=== PATIENT | female | born 1945 | race Caucasian/White ===

== ENCOUNTER → 2016-11-10 | Outpatient (CLI) | payer MEDICARE, BC ==
[~2016-11-10] MED LIST: CARVEDILOL3.125 MG PO; CRESTOR PO; HYDROCHLOROTHIA25 MG PO; LIPITOR40 MG PO; LOPRESSOR PO; VITAMIN B 12; VITAMIN D3400 UNI2 PO; VITAMIN D50000 UNIT PO
--- NOTE | ~2016-11-10 | CR157 ---
[facility] A Service of [facility] RADIOLOGY TEXT RESULTS PATIENT: BETHANY HODGES LOCATION: [facility] : 47 UNIT #: [id number] AGE: [address]: TOMY BRAXTON SEX: F ORDER DR: [id number] [facility] [address] [place], [place] [address] [id number] O MR#: [id number] Acc #: [id number] NAME: BETHANY HODGES : 1945 SEX: F STUDY DATE/TIME: 11/10/2016 11:29 UNIT: [facility] ROOM: STUDY DESCRIPTION: CR Humerus Min 2 View Rt Attending Physician: Pamela Hunter Referring Physician: Pamela Hunter Ordering Physician: Pamela Hunter Primary Care Physician: Beth Woods M.D. MEDICAL IMAGING REPORT This report is preliminary unless electronic signature is present EXAM Right humerus 11/02/2016 HISTORY 71-year-old female with right arm pain status post fall 3 weeks ago. COMPARISON Right shoulder and right elbow same date. FINDINGS 2 views of the right humerus demonstrate no acute fracture or dislocation. Soft tissues are unremarkable. IMPRESSION Unremarkable right humerus. Dictated by... Varinder Walker M.D. THIS IS AN ELECTRONICALLY VERIFIED REPORT Varinder Walker M.D. at 11/10/2016 5:02 PM ALEXANDREA/shadi TD: 11/10/2016 15:00 JOB #: [id number] MEDICAL IMAGING REPORT Page 1 of 1 COPY
--- NOTE | ~2016-11-10 | CR94 ---
[facility] A Service of [facility] & [facility] RADIOLOGY TEXT RESULTS PATIENT: BETHANY HODGES LOCATION: [facility] : 47 UNIT #: [id number] AGE: [address]: TOMY BRAXTON SEX: F ORDER DR: [id number] [facility] [address] [place], [place] [address] [id number] O MR#: [id number] Acc #: [id number] NAME: BETHANY HODGES : 1945 SEX: F STUDY DATE/TIME: 11/10/2016 11:28 UNIT: [facility] ROOM: STUDY DESCRIPTION: CR Elbow Min 3 Views Rt Attending Physician: Pamela Hunter Referring Physician: Pamela Hunter Ordering Physician: Pamela Hunter Primary Care Physician: Beth Woods M.D. MEDICAL IMAGING REPORT This report is preliminary unless electronic signature is present EXAM Right elbow 11/10/2016 HISTORY 71-year-old female with right elbow pain status post fall 3 weeks ago. COMPARISON Right humerus same date. FINDINGS 3 views of the right elbow demonstrate no acute fracture or dislocation. No joint effusion. Soft tissues are unremarkable. IMPRESSION Unremarkable right elbow. Dictated by... Varinder Walker M.D. THIS IS AN ELECTRONICALLY VERIFIED REPORT Varinder Walker M.D. at 11/10/2016 5:02 PM ALEXANDREA/torsten TD: 11/10/2016 14:41 JOB #: [id number] MEDICAL IMAGING REPORT Page 1 of 1 COPY
--- NOTE | ~2016-11-10 | CR230 ---
[facility] A Service of [facility] & [facility] RADIOLOGY TEXT RESULTS PATIENT: BETHANY HODGES LOCATION: [facility] : 47 UNIT #: [id number] AGE: [address]: TOMY BRAXTON SEX: F ORDER DR: [id number] [facility] [address] [place], [place] [address] [id number] O MR#: [id number] Acc #: [id number] NAME: BETHANY HODGES : 1945 SEX: F STUDY DATE/TIME: 11/10/2016 11:28 UNIT: [facility] ROOM: STUDY DESCRIPTION: CR Shoulder Min 2 View Rt Attending Physician: Pamela Hunter Referring Physician: Pamela Hunter Ordering Physician: Pamela Hunter Primary Care Physician: Beth Woods M.D. MEDICAL IMAGING REPORT This report is preliminary unless electronic signature is present EXAM Right shoulder, 11/10/2016 HISTORY 71-year-old female with right shoulder pain status post fall 3 weeks ago. COMPARISON Right humerus same date. FINDINGS 3 views of the right shoulder demonstrate no acute fracture or dislocation. Minimal degenerative change of the acromioclavicular joint. Soft tissues are unremarkable. IMPRESSION 1. No acute fracture or dislocation. 2. Minimal arthrosis of the acromioclavicular joint. Dictated by... Varinder Walker M.D. THIS IS AN ELECTRONICALLY VERIFIED REPORT Varinder Walker M.D. at 11/10/2016 5:02 PM Mic TD: 11/10/2016 14:45 JOB #: [id number] MEDICAL IMAGING REPORT Page 1 of 1 COPY
== END | disposition home or self-care (01) ==
LOC: CRAD 11:10
DX: M25.511 Pain in right shoulder (principal); M25.521 Pain in right elbow; M79.631 Pain in right forearm; M19.011 Primary osteoarthritis, right shoulder
CPT/HCPCS: 73030; 73060; 73080